=== PATIENT | male | born 1950 | race Caucasian/White ===

== ENCOUNTER 2019-08-11 17:27 | Emergency (ER) | payer MEDICARE, OTHER ==
[~2019-08-11] VITALS: Ht 193 cm; Wt 101.6 kg
--- NOTE | 2019-08-11 17:51 | NUR ---
Patient's family member came into ED to ask for a wheel chair to assist with the patient. Nurse took wheel chair out to the parking lot where the patient was the front seat passenger in a lifted [employer] picker truck. The patient stepped out of the truck onto his right foot without issue and was able to walk a few steps to the wheel chair without assistance or visible limp.
[2019-08-11 18:26] VITALS: BP 99/67
[2019-08-11] MEDS ORDERED: ACETAMINOPHEN/CODEINE 300MG - 30MG TAB PO ONE (18:45)
[2019-08-11] MEDS ORDERED: KETOROLAC TROMETHAMINE 60 MG/2 ML VIAL IM ONE (18:45)
== END 2019-08-11 18:58 | disposition home or self-care (01) ==
LOC: ER 17:27
DX: M79.674 Pain in right toe(s) (principal); G89.29 Other chronic pain; I10 Essential (primary) hypertension; I50.9 Heart failure, unspecified; J44.9 Chronic obstructive pulmonary disease, unspecified; Z87.891 Personal history of nicotine dependence
CPT/HCPCS: 99283